=== PATIENT | male | born 1965 | race Caucasian/White ===

== ENCOUNTER → 2016-10-05 | Day surgery (SDC) | payer BC ==
[~2016-10-05] MED LIST: ASPI1TAB2 PO; FENTANYL PF 100 MCG/2 ML VIAL. IV PRN; HYDROMORPHONE 2 MG/ML VIAL. IV PRN; IV RINGERS,LACTATED 1000ML 1,000 ML IV SCH; LIDOCAINE 1% 1 ML SYRINGE. ID PRN; LIDOCAINE 2% PF Vial for OR 5 ML VIAL. ONE; LISI1TAB7 PO; ONDANSETRON PF 4 MG/2 ML VIAL. IV PRN; PROCHLORPERAZINE 10 MG/2 ML VIAL. IV PRN; PROPOFOL 0 ML IV ONE; PROPOFOL 40 ML IV ONE
[2016-10-05 10:14] VITALS: BP 89/56
--- NOTE | 2016-10-08 15:16 | PATHOLOGY ---
PATHOLOGY REPORT * * * * * * * * FINAL DIAGNOSIS: Transverse colon polypectomy: - Tubular adenoma. COMMENT: There is no high-grade dysplasia or evidence of malignancy. (MAKSIMM:; d/t: 10/08/16) REPORT ELECTRONICALLY SIGNED BY: Cisco Swan M.D. DATE/TIME: 10/08/2016 15:15 * * * * * * * * GROSS PATHOLOGY: Received in formalin labeled "Mazin Moreno, transverse colon polypectomy," is a segment of sim soft tissue measuring 0.8 cm in maximum dimension. The specimen is submitted entirely in cassette A1. (CAA; 10/05/2016) INITIAL CPT CODE(S): A; 36949 Professional services performed [place] [facility] [place] [address] Technical services performed by [facility] at [address] [place] [address] [address] [address]. SPECIMEN(S) RECEIVED: A.Transverse colon polypectomy CLINICAL HISTORY: Screening, transverse polyp PATIENT: MAZIN MORENO /AGE: 110/02/1965 (Age: 51) PATIENT #: [id number] ALT CASE #: SPECIMEN COLLECTION DATE: 10/05/2016 SPECIMEN RECEIVED DATE: 10/05/2016 [facility] - [id number] [place] [address] - PHONE: [phone] * * * END OF REPORT * * *
== END ==
LOC: ENDOS 08:49
PROVIDERS: ATTEND Internal Medicine Gastroenterology
DX: Z12.11 Encounter for screening for malignant neoplasm of colon (principal); K64.1 Second degree hemorrhoids; K63.5 Polyp of colon; K21.9 Gastro-esophageal reflux disease without esophagitis; I10 Essential (primary) hypertension
CPT/HCPCS: 45385; J2704

== ENCOUNTER → 2019-08-26 | Outpatient (CLI) | payer BC ==
[2016-10-05 10:14] VITALS: BP 89/56
[~2019-08-26] MED LIST changes: +ASPI-621 PO; -ASPI1TAB2 PO; -FENTANYL PF 100 MCG/2 ML VIAL. IV PRN; -HYDROMORPHONE 2 MG/ML VIAL. IV PRN; -IV RINGERS,LACTATED 1000ML 1,000 ML IV SCH; -LIDOCAINE 1% 1 ML SYRINGE. ID PRN; -LIDOCAINE 2% PF Vial for OR 5 ML VIAL. ONE; +LISI1TAB20 PO; -LISI1TAB7 PO; -ONDANSETRON PF 4 MG/2 ML VIAL. IV PRN; -PROCHLORPERAZINE 10 MG/2 ML VIAL. IV PRN; -PROPOFOL 0 ML IV ONE; -PROPOFOL 40 ML IV ONE; +ZOLPIDEM 5 MG TABLET. PO ONE
--- NOTE | 2019-08-27 09:48 | SLEEP ---
DATE OF STUDY: 08/26/2019 SLEEP STUDY REFERRING PHYSICIAN: Gurdeep Yeager MD The patient is 53 years old who weighs 221 pounds. The patient's [place] score was 10. The patient underwent a sleep study performed at [facility]. The patient has history of sleep apnea in the past. During the night study, the patient spent 401 minutes in bed and slept for 329 minutes with a sleep efficiency of 82%. Sleep latency was 3 minutes with a REM latency of 296 minutes. Sleep architecture showed increased stage 1 and stage 2 sleep, increased slow wave and reduced REM sleep, which was 4% of total sleep time. During the night study, the patient had no obstructive apneas, no central apneas, 1 mixed apnea and 18 hypopneas. The patient's apnea hypopnea index was 4 per hour with a supine index of 4 per hour and a REM index of 16 per hour. EKG monitoring revealed an average heart rate of 66 beats per minute, no sustained arrhythmias observed. Nocturnal oximetry study revealed a mean oxygen saturation of 90% with lowest of 85%. There was a sustained pattern of nocturnal hypoxia, typically seen in patients with hypoventilation. 33% of time oxygen saturation remained between 85 and 89%. PLMS were seen at index of 82 per hour and 11 per hour caused EEG arousals. Due to low AHI, the patient did not meet the split night criteria for CPAP initiation. IMPRESSION: 1. No clinically significant sleep disorder breathing. The patient's apnea-hypopnea index for the entire night was 4 per hour. Mild REM sleep related hypopneas observed. 2. Sustained pattern of nocturnal hypoxia, which was mild and likely related to hypoventilation. 3. Severe periodic limb movements. RECOMMENDATIONS: 1. The patient did not meet the criteria for CPAP initiation. 2. Weight loss is strongly advised. 3. Avoid [employer] depressants. 4. The patient should also be further evaluated for symptoms of restless legs during the day. QUETA RICH MD DR: PENNIE/rama JOB#: [id number] / [id number] [facility] GURDEEP YEAGER MD
== END | disposition home or self-care (01) ==
LOC: RT 18:34
PROVIDERS: ATTEND Internal Medicine Critical Care Medicine
DX: G47.33 Obstructive sleep apnea (adult) (pediatric) (principal); G47.34 Idiopathic sleep related nonobstructive alveolar hypoventilation; G47.61 Periodic limb movement disorder
CPT/HCPCS: 95810